=== PATIENT | female | born 1980 | race Caucasian/White ===

== ENCOUNTER → 2016-11-18 | Outpatient (REF) ==
[~2016-11-18] MED LIST: CIPRO 500MG TA500 MG PO; CIPRO500 MG PO; MACROBID 1100 MG/CAP PO; MACROBID100 MG PO; METRONIDAZOLE500 MG PO; MOTRIN 800800 MG/TAB PO; NO HOME MEDICATIONS; PERCOCET 325 MG1 TA2 PO; PRENATAL1 TA1 PO; PYRIDIUM 100MG100 MG PO; PYRIDIUM200 M1 PO; ZOFRAN 4MG T4 MG/TAB PO
== END ==
LOC: WSOH 10:25
DX: Z02.89 Encounter for other administrative examinations (principal)
CPT/HCPCS: G0463

== ENCOUNTER 2019-12-23 10:14 | Inpatient (IN) | payer OTHER ==
[2019-12-23] VITALS (26 sets, daily range): BP systolic 104–148; BP diastolic 56–86; PULSE 62–107; TEMP 97.3–97.7
[~2019-12-23] VITALS: Ht 165.1 cm; Wt 83.6 kg
--- NOTE | 2019-12-23 13:14 | NUR ---
1215 - Pt and spouse arrive to unit ambulatory from admissions for induction of labor. Pt changed into gown, EFM explained and placed. IV started in left hand. Pt denies leaking of fluid, vaginal bleeding, reports good movement and feeling occasional contractions. Plan of care discussed, consents signed, assessment complete. Dr. Maravilla notified of pt arrival.
[2019-12-23 14:02] LABS: BASO % 0.2 % (0.0-2.0); EOS % 0.4 % (0-4.0); GRAN # 7.6 (1.4-6.5); GRAN % 74.6 % (42.2-75.2); HEMATOCRIT 39.5 % (37.0-47.0); HEMOGLOBIN 13.8 g/dl (12.5-16.0); LYMPH # 1.9 (1.2-3.4); LYMPH % 18.8 % (20.0-51.0); MEAN CELL VOLUME 98 fl (80.0-100.0); MEAN CORPUSCULAR HEMOGLOBIN 34 pg (27.0-31.0); MEAN CORPUSCULAR HGB CONC 35 g/dl (33.0-37.0); MEAN PLATELET VOLUME 10.7 fl (7.4-10.4); MONO # 0.5 (0.1-0.6); MONO % 5.1 % (1.7-9.3); PLATELET COUNT 228 K/mm3 (130-400); RED BLOOD COUNT 4.05 M/mm3 (4.10-5.30); REDCELL DISTRIBUTION WIDTH-CV 13.2 % (11.5-14.5)
--- NOTE | 2019-12-23 15:25 | NUR ---
Straight Catheter by Ambar RN to drain bladder, 350ml clear yellow urine noted.
--- NOTE | 2019-12-23 15:50 | NUR ---
1550: at bedside. MINA Complete. Practice push. Patient and room prepped for delivery. 1555: Initial push. 1558: Spontaneous vaginal delivery of viable female over intact perineum assisted by . care assumed by Ambar RESENDEZ at this time. Pitocin off. Red kevin catheter used to drain bladder, 25ml urine noted. 1602: Spontaneous vaginal delivery of placenta assisted by . Fundus firm at D1, scant lochia noted with massage. Pitocin infusing at 333ml/hr. 1605: Recovery period started. Pericare performed. Fundus firm, lochia WNL.
--- NOTE | 2019-12-23 19:20 | NUR ---
Pt able to lift and hold each leg off of bed for 5 seconds. Pt positioned to sitting on edge of bed. Epidural catheter removed at this time. Tip blue, smooth, and intact. Pt able to ambulate to bathroom independently. Pt unable to void at this time. Pericare explained and provided. Educated patient on need of 3 measured voids. Clean gown own. Mesh panties and peripad on. Pt ambulated to room 208 with belongings.
[2019-12-24 03:30] VITALS: BP 108/63; PULSE 71; TEMP 97.7
[2019-12-24 08:21] VITALS: BP 111/70; PULSE 72; TEMP 98.1
[2019-12-24 17:18] VITALS: BP 100/53; PULSE 63; TEMP 98.2
[2019-12-24 21:10] VITALS: BP 115/75; PULSE 69; TEMP 97.4
[2019-12-25 08:00] VITALS: BP 110/64; PULSE 78; TEMP 98.1
[2019-12-25] MEDS ORDERED: IBU800 M1 PO (09:51)
== END 2019-12-25 11:00 | disposition home or self-care (01) | DRG 807 ==
LOC: LDR 10:14 → OB 19:35 → LDR 12-26 09:30
PROVIDERS: ADMIT Obstetrics & Gynecology
PROC: 10E0XZZ Delivery of Products of Conception, External Approach (ICD-10-PCS; principal; 2019-12-23)
DX: O80 Encounter for full-term uncomplicated delivery (principal); Z37.0 Single live birth; Z23 Encounter for immunization; Z3A.39 39 weeks gestation of pregnancy
CPT/HCPCS: J2590; J7120

== ENCOUNTER 2021-05-25 00:43 | Outpatient (CLI) | payer OTHER ==
[~2021-05-25] VITALS: Ht 162.6 cm; Wt 81.8 kg
[~2021-05-25 00:43] MED LIST changes: +IBU800 M1 PO
[2021-05-25 01:00] VITALS: BP 120/69; PULSE 85; TEMP 98
== END 2021-05-25 03:00 | disposition home or self-care (01) ==
LOC: LDRO 00:43
DX: O62.9 Abnormality of forces of labor, unspecified (principal); Z3A.38 38 weeks gestation of pregnancy

== ENCOUNTER → 2021-06-10 | Outpatient (CLI) | payer OTHER | LOC: ZCOL.LAB 08:00 | DX: Z20.822 Contact with and (suspected) exposure to COVID-19 (principal) ==

== ENCOUNTER 2021-06-13 05:59 | Inpatient (IN) | payer OTHER ==
[~2021-06-13] VITALS: Ht 160 cm; Wt 84.5 kg
[2021-06-13] VITALS (28 sets, daily range): BP systolic 100–149; BP diastolic 54–94; PULSE 62–88; TEMP 97.7–98.4
--- NOTE | 2021-06-13 06:15 | NUR ---
PATIENT ARRIVES AMBULATORY TO [facility] FOR SCHEDULED INDUCTION OF LABOR - POST DATES. VOIDS, CHANGES INTO GOWN, ORIENTED TO ROOM AND PLAN OF CARE. PATIENT DENIES ANY COMPLICATIONS WITH . REPORTS ACTIVE MOVEMENT. DENIES VAGINAL BLEEDING OR LEAKING OF FLUID. PATIENT VERBALIZES PLAN FOR LABOR EPIDURAL.
[2021-06-13 07:13] LABS: BASO % 0.4 % (0.0-2.0); EOS % 0.6 % (0-4.0); GRAN % 70.3 % (42.2-75.2); HEMOGLOBIN 12.3 g/dl (12.5-16.0); LYMPH # 1.5 (1.2-3.4); LYMPH % 21.4 % (20.0-51.0); MEAN CELL VOLUME 98 fl (80.0-100.0); MEAN CORPUSCULAR HEMOGLOBIN 34 pg (27.0-31.0); MEAN CORPUSCULAR HGB CONC 35 g/dl (33.0-37.0); MEAN PLATELET VOLUME 10.3 fl (7.4-10.4); MONO # 0.4 (0.1-0.6); MONO % 6.2 % (1.7-9.3); PLATELET COUNT 201 K/mm3 (130-400); RED BLOOD COUNT 3.63 M/mm3 (4.10-5.30); REDCELL DISTRIBUTION WIDTH-CV 12.9 % (11.5-14.5)
[2021-06-13 07:14] LABS: HEMATOCRIT 35.4 % (37.0-47.0)
--- NOTE | 2021-06-13 10:03 | NUR ---
@ 0939 DR CHRISTIANSON CALLED AND NOTIFIED OF SVE 9CM. @ 0957 DR CHRISTIANSON ARRIVES TO ROOM FOR DELIVERY. @ [address] CHRISTIANSON - STATES CERVIX IS NOW COMPLETE. PATIENT ASSISTED TO SEMI FOWLERS POSITION AND BEGINS PUSHING AT 0959 SPONTANEOUS VAGINAL DELIVERY OF INFANT HEAD AT 1002, DELIVERY OF INFANT BODY 1003 (24 SECONDS FOLLOWING HEAD). SPONTANEOUS DELIVERY OF PLACENTA OVER INTACT PERINEUM AT 1009. RECOVERY STARTED AT 1012.
[2021-06-14 01:15] VITALS: BP 124/88; PULSE 90; TEMP 97.8
[2021-06-14 08:52] VITALS: BP 100/68; PULSE 76; TEMP 98.1
== END 2021-06-14 12:55 | disposition home or self-care (01) | DRG 807 ==
LOC: LDR 05:59 → OB 12:12
PROVIDERS: ADMIT Obstetrics & Gynecology
PROC: 10E0XZZ Delivery of Products of Conception, External Approach (ICD-10-PCS; principal; 2021-06-13)
PROC: 10907ZC Drainage of Amniotic Fluid, Therapeutic from Products of Conception, Via Natural or Artificial Opening (ICD-10-PCS; 2021-06-13)
PROC: 3E033VJ Introduction of Other Hormone into Peripheral Vein, Percutaneous Approach (ICD-10-PCS; 2021-06-13)
DX: O48.0 Post-term pregnancy (principal); Z37.0 Single live birth; Z3A.41 41 weeks gestation of pregnancy
CPT/HCPCS: J2590; J7120